=== PATIENT | female | born 1950 ===

== ENCOUNTER 2016-09-23 10:03 | Emergency (ER) | payer MEDICARE ==
[2016-09-23 10:06] VITALS: PULSE 109; TEMP 97; O2SAT 99
[2016-09-23 10:08] VITALS: BMI 33.5
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
[2016-09-23 12:32] VITALS: BP 132/78; RESP 18
--- NOTE | 2016-09-23 12:33 | RAD ---
PROCEDURE: Cervical Spine Radiographs. HISTORY: Posttraumatic pain. COMPARISON: None. FINDINGS: BONES: Alignment maintained. No fracture. Dens Intact. DISC SPACES: Disc degenerative changes C5-6, C6-7. SOFT TISSUES: Normal. No prevertebral soft tissue swelling. OTHER FINDINGS: None. IMPRESSION: No acute findings related to/accounting for the clinical presentation. Concordant results with the preliminary interpretation rendered by the emergency department physician procedure.
--- NOTE | 2016-09-23 14:24 | RAD ---
PROCEDURE: Radiographs of the left elbow. HISTORY: trauma COMPARISON: No prior. FINDINGS: BONES: Normal. No fracture. JOINTS: Osteoarthritic changes and marginal osteophyte formation are seen. SOFT TISSUES: Normal. JOINT EFFUSION: None. OTHER FINDINGS: None IMPRESSION: No radiographic evidence of acute fracture or dislocation. Osteoarthritic degenerative changes.
--- NOTE | 2016-09-23 14:27 | RAD ---
PROCEDURE: Left Knee Radiographs. HISTORY: Pain. COMPARISON: None. FINDINGS: BONES: Diffuse osteopenia is noted. No evidence of acute fracture or dislocation. JOINTS: Normal. No osteoarthritis. JOINT EFFUSION: None. OTHER FINDINGS: None. IMPRESSION: No evidence of acute fracture or dislocation.
== END 2016-09-23 12:32 | disposition home or self-care (01) ==
LOC: H.ER 10:03
DX: S13.4XXA Sprain of ligaments of cervical spine, initial encounter (principal); S83.92XA Sprain of unspecified site of left knee, initial encounter; S53.402A Unspecified sprain of left elbow, initial encounter; Y04.0XXA Assault by unarmed brawl or fight, initial encounter; Y92.89 Other specified places as the place of occurrence of the external cause; E11.9 Type 2 diabetes mellitus without complications; I10 Essential (primary) hypertension

== ENCOUNTER 2017-07-15 10:22 | Observation (INO) | payer MEDICARE, MEDICAID ==
[2017-07-15] MEDS ORDERED: Bupivacaine 0.5% Inj(30mL) ONE (10:35)
[2017-07-15] MEDS ORDERED: Lidocaine 1% Inj (20ml) ONE (10:36)
[2017-07-15 10:37] VITALS: BMI 34.2
--- NOTE | 2017-07-15 10:56 | CP.SDSHP ---
Same Day Surgery H & P - Allergies Allergies: Allergies shrimp Allergy (Verified 07/14/17 13:54) SWELLING Short Stay Discharge - Short Stay Discharge Admitting Diagnosis/Reason for Visit: S82.62XA,S93.432A,G89.11,R60.0 Disposition: HOME/ ROUTINE Referrals: Roselia Carrillo MD [Primary Care Provider] -
--- NOTE | 2017-07-15 10:56 | CP.PCM.PN ---
Subjective - Date & Time of Evaluation Date of Evaluation: 07/15/17 Time of Evaluation: 10:56 - Subjective Subjective: Podiatry Consult Note - Dr. Martinez 67 year old female PMHx DM, HTN, fibromyalgia, 2 herniated discs seen for pre- operative evaluation for left fibular fracture ORIF with Dr. Martinez. Family member present at bedside. Posterior splint present on LLE and CAM walker on RLE. Patient states she sustained a fall descending down steps, injuring both ankles - admits she fractured her left ankle and sprained right ankle. Patient reports severe pain to her left ankle, moderate pain to right ankle. Patient states due to her bilateral injuries, she is unable to ambulate and feels unstable when she stands just on her right foot. Patient admits to taking pain medications but have provided no relief to her left ankle. Patient denies N/V/F/ D/C/SOB/calf pain. Objective - Constitutional Appears: Well, Non-toxic, No Acute Distress - Extremities Exam Additional comments: LLE focused physical exam Posterior splint appears clean/dry/intact. CFT <3 seconds to all digits x5. Gross sensation intact to digits. - Neurological Exam Neurological Exam: Alert, Awake, Oriented x3 - Psychiatric Exam Psychiatric exam: Normal Affect, Normal Mood Assessment and Plan - Assessment and Plan (Free Text) Assessment: 67 year old female PMHx DM, HTN, fibromyalgia, herniated discs with 1) left fibular fracture and 2) right ankle sprain secondary to mechanical fall Plan: Patient seen and evaluated Discussed with attending, Dr. Martinez Afebrile, WBC 5.4 Left ankle pain remains despite conservative management - pt opting for surgical intervention. Explained to patient and family all risks, benefits, and complications of procedure and wishes to proceed To OR tomorrow 07/16/17 for left fibular fracture ORIF Patient was explained procedure and post-operative course NPO at midnight Requesting medical and cardiac clearance Patient to be admitted for evaluation, increased pain LLE and gait instability Podiatry will continue to follow while in house
[2017-07-15] MEDS ORDERED: Lidocaine 4% (Laryng-O-Jet) Kit MM ONE (10:58)
[2017-07-15] MEDS ORDERED: Etomidate 20 mg/10ml Inj IV ONE (10:58)
[2017-07-15] MEDS ORDERED: Succinylcholine 200 mg/10 ml Inj IV ONE (10:58)
[2017-07-15] MEDS ORDERED: Propofol 10 mg/ml Inj (20 ML) ONE (10:58)
[2017-07-15] MEDS ORDERED: Phenylephrine 10 mg/ml Inj ONE (10:58)
[2017-07-15] MEDS ORDERED: Rocuronium 10 mg/ml (5 ml) ONE (10:58)
[2017-07-15] MEDS ORDERED: Bupivacaine HCl/Epi 0.5% 1:20000 30 ML SOL IJ ONE (11:04)
[2017-07-15 11:16] LABS: HEMOGLOBIN 11.6 g/dL (12.0-16.0); MEAN CELL VOLUME 80.8 fl (81.0-99.0); MEAN CORPUSCULAR HEMOGLOBIN 26.4 pg (27.0-31.0); MEAN CORPUSCULAR HGB CONC 32.7 g/dL (33.0-37.0); RBC 4.38 Mil/uL (3.80-5.20); RED CELL DISTRIBUTION WIDTH 16.6 % (11.5-14.5); WHITE BLOOD COUNT 5.4 K/uL (4.8-10.8)
[2017-07-15 11:26] LABS: ALT/SGPT 36 U/L (9-52); AST/SGOT 23 U/L (14-36); BLOOD UREA NITROGEN 14 mg/dl (7-17); CALCIUM 9.6 mg/dL (8.4-10.2); GFR AFRICAN-AMERICAN > 60; GFR NON-AFRICAN AMERICAN > 60
[2017-07-15 11:29] LABS: PARTIAL THROMBOPLASTIN TIME 31.6 Seconds (25.6-37.1); PROTHROMBIN TIME 11.4 Seconds (9.8-13.1)
--- NOTE | 2017-07-15 11:32 | RAD ---
HISTORY: pre op COMPARISON: No prior. FINDINGS: LUNGS: No active pulmonary disease. PLEURA: No significant pleural effusion identified, no pneumothorax apparent. CARDIOVASCULAR: Atherosclerotic aortic calcifications. Cardiomediastinal silhouette appears prominent ; however, this cannot be accurately assessed on an AP projection. OSSEOUS STRUCTURES: Degenerative changes. VISUALIZED UPPER ABDOMEN: Normal. OTHER FINDINGS: None. IMPRESSION: No active disease.
--- NOTE | 2017-07-15 12:12 | CP.PCM.HP ---
History of Present Illness - History of Present Illness History of Present Illness: 67 yo female with history of DM2, HTN, palpitation and Fibromyalgia was sent here for ORIF of displaced left distal fibular fracture caused by falling on the stairs a week ago. Present on Admission - Present on Admission Any Indicators Present on Admission: No History of DVT/PE: No History of Uncontrolled Diabetes: No Urinary Catheter: No Decubitus Ulcer Present: No Review of Systems - Review of Systems All systems: reviewed and no additional remarkable complaints except (aside from those mentioned above, 14 point system review were negative by me) Past Patient History - Tetanus Immunizations Tetanus Immunization: Unknown - Past Medical History & Family History Past Medical History?: Yes - Past Social History Smoking Status: Never Smoked Alcohol: None Drugs: Denies Home Situation {Lives}: With Family - CARDIAC Hx Cardiac Disorders: Yes Hx Hypertension: Yes Other/Comment: palpitation - PULMONARY Hx Respiratory Disorders: No - NEUROLOGICAL Hx Neurological Disorder: No - HEENT Hx HEENT Problems: No - RENAL Hx Chronic Kidney Disease: No - ENDOCRINE/METABOLIC Hx Diabetes Mellitus Type 2: Yes - HEMATOLOGICAL/ONCOLOGICAL Hx Blood Disorders: No - INTEGUMENTARY Hx Dermatological Problems: No - MUSCULOSKELETAL/RHEUMATOLOGICAL Other/Comment: Fibromyalgia - GASTROINTESTINAL Hx Gastrointestinal Disorders: No - GENITOURINARY/GYNECOLOGICAL Hx Genitourinary Disorders: No - PSYCHIATRIC Hx Psychophysiologic Disorder: No - SURGICAL HISTORY Hx Surgeries: Yes Hx Cholecystectomy: Yes Hx Tubal Ligation: Yes - ANESTHESIA Hx Anesthesia: Yes Hx Anesthesia Reactions: No Hx Malignant Hyperthermia: No Has any member of the family had a problem w/ anesthesia?: No Meds Allergies/Adverse Reactions: Allergies Allergy/AdvReac Type Severity Reaction Status Date / Time shrimp Allergy SWELLING Verified 07/14/17 13:54 Physical Exam - Constitutional Appears: No Acute Distress - Head Exam Head Exam: ATRAUMATIC - Eye Exam Eye Exam: absent: Scleral icterus - ENT Exam ENT Exam: Mucous Membranes Moist - Neck Exam Neck exam: Negative for: Meningismus - Respiratory Exam Respiratory Exam: absent: Rhonchi, Wheezes, Respiratory Distress - Cardiovascular Exam Cardiovascular Exam: REGULAR RHYTHM, +S1, +S2 - GI/Abdominal Exam GI & Abdominal Exam: Soft. absent: Tenderness - Rectal Exam Rectal Exam: Deferred - Extremities Exam Extremities exam: Negative for: normal inspection (left leg in cast) - Back Exam Back exam: absent: tenderness - Neurological Exam Neurological exam: Alert, Oriented x3 - Psychiatric Exam Psychiatric exam: Normal Affect - Skin Skin Exam: Dry, Intact Results - Labs Result Diagrams: 07/15/17 11:00 07/15/17 11:00 Labs: Laboratory Results - last 24 hr 07/15/17 07/15/17 07/15/17 11:00 11:00 11:00 WBC 5.4 RBC 4.38 Hgb 11.6 L Hct 35.4 MCV 80.8 L MCH 26.4 L MCHC 32.7 L RDW 16.6 H Plt Count 291 PT 11.4 INR 1.0 APTT 31.6 Sodium 139 Potassium 3.3 L Chloride 96 L Carbon Dioxide 30 Anion Gap 16 BUN 14 Creatinine 0.5 L Est GFR ( Amer) > 60 Est GFR (Non-Af Amer) > 60 POC Glucose (mg/dL) Random Glucose 145 H Calcium 9.6 Total Bilirubin 0.4 AST 23 ALT 36 Alkaline Phosphatase 91 Total Protein 7.9 Albumin 4.0 Globulin 3.9 Albumin/Globulin Ratio 1.0 07/15/17 11:45 WBC RBC Hgb Hct MCV MCH MCHC RDW Plt Count PT INR APTT Sodium Potassium Chloride Carbon Dioxide Anion Gap BUN Creatinine Est GFR ( Amer) Est GFR (Non-Af Amer) POC Glucose (mg/dL) 141 H Random Glucose Calcium Total Bilirubin AST ALT Alkaline Phosphatase Total Protein Albumin Globulin Albumin/Globulin Ratio Assessment & Plan - Assessment and Plan (Free Text) Assessment: 67 yo female with history of DM2, HTN, palpitation and Fibromyalgia was sent here for ORIF of displaced left distal fibular fracture caused by falling on the stairs a week ago. 1. Displaced Fracture of Left Distal Fibula for ORIF by Dr Hinojosa pending cardiac clearance by Dr Campo ECHO pain controlled 2. DM2 BS controlled continue Metformin 1000mg PO OD 3. HTN BP stable Losartan 25mg PO daily Metoprolol 200mg PO BID
[2017-07-15] MEDS ORDERED: Perflutren Lipid Microsphere 1.5 ML SUS IV ONE (12:37)
--- NOTE | 2017-07-15 17:50 | CARD ---
APPROVED REPORT EXAM: Two-dimensional and M-mode echocardiogram with Doppler, color Doppler with contrast. Other Information Quality : GoodRhythm : NSR INDICATION Pre-Op Echo Enhancing Agent Indication: Endocardial border delineation Agent/Amount Used: Definity 2D DIMENSIONS IVSd1.08 (0.7-1.1cm)LVDd3.42 (3.9-5.9cm) LVOT Diameter2.22 (1.8-2.4cm)PWd1.09 (0.7-1.1cm) IVSs1.74 (0.8-1.2cm)LVDs1.58 (2.5-4.0cm) FS (%) 53.8 %PWs1.58 (0.8-1.2cm) M-Mode DIMENSIONS Left Atrium (MM)3.44 (2.5-4.0cm)IVSd1.18 (0.7-1.1cm) Aortic Root2.82 (2.2-3.7cm)LVDd4.21 (4.0-5.6cm) Aortic Cusp Exc.1.97 (1.5-2.0cm)PWd1.00 (0.7-1.1cm) IVSs1.50 cmFS (%) 54 % LVDs1.94 (2.0-3.8cm)PWs1.38 cm Mitral Valve MV E Ovylswag92.5cm/sMV DECEL COED196eeWG A Jbtesgld51.2cm/s MV UWX37ilN/A ratio0.5MVA (PHT)5.09cm2 TDI Lateral E' Peak V6.44cm/sMedial E' Peak V3.59cm/sE/Lateral E'6.8 E/Medial E'12.1 Pulmonary Valve PV Peak Eamuwwao51.5cm/s LEFT VENTRICLE The left ventricle is normal size. There is normal left ventricular wall thickness. The left ventricular function is normal. The left ventricular ejection fraction is 60% There is normal LV segmental wall motion. The left ventricular diastolic function is normal. No left ventricle thrombus noted on this study. There is no ventricular septal defect visualized. There is no left ventricular aneurysm. There is no mass noted in the left ventricle. RIGHT VENTRICLE The right ventricle is normal size. There is normal right ventricular wall thickness. The right ventricular systolic function is normal. ATRIA The left atrium size is normal. The right atrium size is normal. The interatrial septum is intact with no evidence for an atrial septal defect. AORTIC VALVE The aortic valve is normal in structure. No aortic regurgitation is present. There is no aortic valvular stenosis. There is no aortic valvular vegetation. MITRAL VALVE The mitral valve is normal in structure. There is no evidence of mitral valve prolapse. There is no mitral valve stenosis. There is no mitral valve regurgitation noted. TRICUSPID VALVE The tricuspid valve is normal in structure. There is no tricuspid valve regurgitation noted. There is no tricuspid valve prolapse or vegetation. There is no tricuspid valve stenosis. PULMONIC VALVE The pulmonary valve is normal in structure. There is no pulmonic valvular regurgitation. There is no pulmonic valvular stenosis. GREAT VESSELS The aortic root is normal in size. The ascending aorta is normal in size. The IVC is normal in size and collapses >50% with inspiration. PERICARDIAL EFFUSION The pericardium appears normal. There is no pleural effusion. <Conclusion> Normal Echocardiogram
--- NOTE | 2017-07-15 17:58 | CARD ---
APPROVED REPORT EKG Measurement Heart [id number] <Conclusion> Normal sinus rhythm Normal ECG
[2017-07-16 07:24] LABS: INR 1.1 (0.9-1.2)
[2017-07-16 07:26] LABS: BASO % 0.6 % (0.0-2.0); BLOOD UREA NITROGEN 14 mg/dl (7-17); CALCIUM 9.4 mg/dL (8.4-10.2); EOS # 0.1 K/uL (0.0-0.7); EOS % 1.1 % (0.0-4.0); GFR AFRICAN-AMERICAN > 60; GFR NON-AFRICAN AMERICAN > 60; HEMOGLOBIN 11.2 g/dL (12.0-16.0); LYMPH # 1.8 K/uL (1.0-4.3); LYMPH % 34.2 % (20.0-40.0); MEAN CELL VOLUME 80.3 fl (81.0-99.0); MEAN CORPUSCULAR HEMOGLOBIN 27.1 pg (27.0-31.0); MEAN CORPUSCULAR HGB CONC 33.7 g/dL (33.0-37.0); MEAN PLATELET VOLUME 7.9 fl (7.2-11.7); MONO # 0.4 K/uL (0.0-0.8); MONO % 7.5 % (0.0-10.0); NEUT # 2.9 K/uL (1.8-7.0); NEUT % 56.6 % (50.0-75.0); NRBC % 0.1 % (0.0-0.0); RBC 4.13 Mil/uL (3.80-5.20); RED CELL DISTRIBUTION WIDTH 16.4 % (11.5-14.5); WHITE BLOOD COUNT 5.1 K/uL (4.8-10.8)
[2017-07-16] MEDS ORDERED: Etomidate 20 mg/10ml Inj IV ONE (07:32)
[2017-07-16] MEDS ORDERED: Succinylcholine 200 mg/10 ml Inj IV ONE (07:32)
[2017-07-16] MEDS ORDERED: Rocuronium 10 mg/ml (5 ml) ONE ×2 (07:32→10:06)
[2017-07-16] MEDS ORDERED: Propofol 10 mg/ml Inj (20 ML) ONE (07:32)
[2017-07-16] MEDS ORDERED: Bupivacaine HCl/Epi 0.5% 1:20000 30 ML SOL IJ ONE (07:41)
--- NOTE | 2017-07-16 07:43 | CP.PCM.PN ---
Subjective - Date & Time of Evaluation Date of Evaluation: 07/16/17 Time of Evaluation: 07:41 - Subjective Subjective: Podiatry Progress Note - Dr. Martinez 67 year old female PMHx DM, HTN, fibromyalgia, 2 herniated discs seen for pre- operative evaluation for left fibular fracture ORIF. No acute events overnight. Patient reports minimal pain to LLE today, well-controlled. Admits to moderate pain to RLE. NPO confirmed. Patient states she is able to WBAT RLE in a CAM walker, and is comfortably able to transfer using RLE. Patient denies N/V/F/D/C/ SOB/calf pain. Objective - Vital Signs/Intake and Output Vital Signs (last 24 hours): Temp Pulse Resp BP Pulse Ox 97.7 F 82 19 125/75 95 07/16/17 07:29 07/16/17 07:29 07/16/17 07:29 07/16/17 07:29 07/16/17 07:29 - Medications Medications: Current Medications Calcium Carbonate (Oscal) 500 mg PO DAILY [facility] Cholecalciferol (Vitamin D) 1,000 intlu PO DAILY [facility] Gabapentin (Neurontin) 800 mg PO DAILY [facility] Losartan Potassium (Cozaar) 25 mg PO DAILY [facility] Metformin HCl (Glucophage) 1,000 mg PO DAILY [facility] Metoprolol Tartrate (Lopressor) 200 mg PO Q12 [facility] Last Admin: 07/16/17 07:27 Dose: 200 mg Pantoprazole Sodium (Protonix Ec Tab) 40 mg PO DAILY [facility] - Labs Labs: 07/16/17 05:30 07/16/17 05:30 PT 12.0 Seconds (9.8-13.1) 07/16/17 05:30 INR 1.1 (0.9-1.2) 07/16/17 05:30 APTT 31.6 Seconds (25.6-37.1) 07/15/17 11:00 - Constitutional Appears: Well, Non-toxic, No Acute Distress - Extremities Exam Additional comments: LLE focused physical exam Posterior splint appears clean/dry/intact. CFT <3 seconds to all digits x5. Gross sensation intact to digits. - Neurological Exam Neurological Exam: Alert, Awake, Oriented x3 - Psychiatric Exam Psychiatric exam: Normal Affect, Normal Mood Assessment and Plan - Assessment and Plan (Free Text) Assessment: 67 year old female PMHx DM, HTN, fibromyalgia, herniated discs with 1) left fibular fracture and 2) right ankle sprain secondary to mechanical fall Plan: Patient seen and evaluated Discussed with attending, Dr. Martinez Vital signs stable, WBC 5.1 Pt NPO status was confirmed All Pre-op testing and clearance was in the chart Pt has exhausted all conservative treatment at this time and is opting for surgical intervention Pt was explained procedure and post-operative course All pt's questions were answered to satisfaction No guarantees were made Pt understands all risks, benefits and complications of procedure Pt will follow-up with Dr. Martinez in office Podiatry will continue to follow while in house
[2017-07-16] MEDS ORDERED: Bupivacaine 0.5% Inj(30mL) IJ ONE (07:46)
[2017-07-16] MEDS ORDERED: Lidocaine 1% Inj (20ml) IJ ONE (07:46)
[2017-07-16] MEDS ORDERED: Lactated Ringer's 1,000 ML IV ONE (08:08)
[2017-07-16] MEDS ORDERED: Neostigmine 1:1000 (1 mg/ml) Inj ONE (08:44)
[2017-07-16] MEDS ORDERED: Dexamethasone 4 mg/1 ml ONE ×2 (08:46→09:54)
[2017-07-16] MEDS ORDERED: Cholecalciferol 1,000 INTLU TAB PO SCH (09:00)
[2017-07-16] MEDS ORDERED: Pantoprazole 40 mg EC Tab PO SCH ×2 (09:00)
[2017-07-16] MEDS ORDERED: ceFAZolin IV 2 gm in Dextrose 2 GM/50 ML BAG IVPB ONE (09:00)
--- NOTE | 2017-07-16 09:43 | PCM.ANESB2 ---
Popliteal Nerve Block - Popliteal Nerve Block Date of Procedure: 07/16/17 Anesthesiologist: Rima Pre-Procedure Diagnosis: Left fibula fracture Post-Procedure Diagnosis: Same Procedure Performed: Popliteal Nerve Block Left - Procedure Popliteal Nerve Block: This procedure was explained to the patient that it is for post-operative pain management. Consent was obtained after a thorough discussion with the patient regarding the benefits and possible complications of local anesthetic block of the sciatic nerve at the popliteal level. The patient was brought to the operating room and standard monitors are applied. Time-out was held with the circulating nurse to confirm the correct surgery and the appropriate block. Under general aneshesia, patient's operative leg was gently raised and supported and the groove in between the biceps femoris and vastus lateralis muscles was carefully palpated. The skin approximately 8cm above the popliteal crease was then marked. The ultrasound transducer was then applied to the posterior thigh approximately 8cm above the popliteal crease in the transverse plane and the sciatic nerve before its division was visualized lateral to the popliteal artery and in between the bicep femoris and semimembranosus/ semitendinosus muscles. After identification, the lateral portion of the thigh was prepped with Chloraprep. At this point, a # 21 gauge Stimuplex insulated 4 inch needle was inserted into pre-marked area and advanced in a perpendicular direction. The needle was inserted above the ultrasound transducer in-plane towards the sciatic nerve in a [id number] direction. Needle advancement was performed carefully under direct ultrasound visualization. Nerve stimulator was used and dorsiflexion of the __left___ foot was elicited at a current of _0.4____ MA. After repeated negative aspiration, __2___cc of __0.375___ % __bupivicaine with 1:200,000 epinephrine was injected and this was flowed with __28____ cc of __ _0.5___% ___bupivicaine with 1:200,000 epinephrine . Under ultrasound guidance the local anesthetics were observed surrounding sciatic nerve . The needle was removed intact. The patient tolerated the popliteal nerve block well with stable vital signs and was subsequently prepared for the surgery.
[2017-07-16] MEDS ORDERED: Bupivacaine 0.5% Inj(30mL) ONE (09:55)
[2017-07-16] MEDS ORDERED: Dexamethasone 4 mg/1 ml IM ONE (09:57)
[2017-07-16] MEDS ORDERED: Bupivacaine 0.5% 50 ML IJ ONE (09:58)
--- NOTE | 2017-07-16 10:40 | PCM.SURG1 ---
Surgeon's Initial Post Op Note - Surgeon's Notes Surgeon: Dr. Martinez Medicine Assistant: Rosaura Kruse PGY3, Haroon Heard PGY3, Tamia Yang PGY1 Type of Anesthesia: General Endo, Local (Popliteal block) Anesthesia Administered By: Dr. bAarca Pre-Operative Diagnosis: 1) Displaced left fibular fracture. 2) Left syndesmotic injury Operative Findings: See operative report. Materials: Synthes VA lateral distal fibular plate, 4 hole L; 3.5mm cortical screws (16mm, 14mm), 2.7 VA locking screw (14mm, 10mm, 12mm), 2.7mm lovking screw (14mm), 2.0mm cortical screw (22mm ), 7.0mm washer, 3-0 vicryl, 4-0 vicryl, 4-0 monocryl. Injectables: 10cc 0.5% marcaine plain, 8cc dexamethasone Post-Operative Diagnosis: Same as above Operation Performed: 1) ORIF left fibular fracture. 2) repair of ankle syndesmosis with Arthrex tightrope Specimen/Specimens Removed: - Estimated Blood Loss: EBL {In ML}: 1 Blood Products Given: N/A Drains Used: No Drains Post-Op Condition: Good Date of Surgery/Procedure: 07/16/17 Time of Surgery/Procedure: 10:41
[2017-07-16] MEDS ORDERED: Oxycodone/Acetaminophen 5/325 mg Tab PO PRN ×2 (10:48)
[2017-07-16] MEDS ORDERED: Lactated Ringer's 1,000 ML IV SCH (11:00)
--- NOTE | 2017-07-16 11:57 | CP.PCM.DIS ---
Provider - Provider Date of Admission: 07/15/17 11:37 Attending physician: Johnathan Retana MD Primary care physician: Roselia Carrillo MD Consults: Dr Jahaira Martinez Time Spent in preparation of Discharge (in minutes): 25 Diagnosis - Discharge Diagnosis (1) Displaced fracture of distal end of left fibula Status: Acute Comment: s/p ORIF. follow up with Dr Martinez in a week (2) DM2 (diabetes mellitus, type 2) Status: Chronic Comment: BS controlled. continue Metformin 1000mg PO daily (3) HTN (hypertension) Status: Chronic Comment: BP stable. continue Losartan and Metoprolol Hospital Course - Lab Results Lab Results: Most Recent Lab Values WBC 5.1 K/uL (4.8-10.8) 07/16/17 05:30 RBC 4.13 Mil/uL (3.80-5.20) 07/16/17 05:30 Hgb 11.2 g/dL (12.0-16.0) L 07/16/17 05:30 Hct 33.1 % (34.0-47.0) L 07/16/17 05:30 MCV 80.3 fl (81.0-99.0) L 07/16/17 05:30 MCH 27.1 pg (27.0-31.0) 07/16/17 05:30 MCHC 33.7 g/dL (33.0-37.0) 07/16/17 05:30 RDW 16.4 % (11.5-14.5) H 07/16/17 05:30 Plt Count 301 K/uL (130-400) 07/16/17 05:30 MPV 7.9 fl (7.2-11.7) 07/16/17 05:30 Neut % (Auto) 56.6 % (50.0-75.0) 07/16/17 05:30 Lymph % (Auto) 34.2 % (20.0-40.0) 07/16/17 05:30 [place] % (Auto) 7.5 % (0.0-10.0) 07/16/17 05:30 Eos % (Auto) 1.1 % (0.0-4.0) 07/16/17 05:30 Baso % (Auto) 0.6 % (0.0-2.0) 07/16/17 05:30 Neut # (Auto) 2.9 K/uL (1.8-7.0) 07/16/17 05:30 Lymph # (Auto) 1.8 K/uL (1.0-4.3) 07/16/17 05:30 [place] # (Auto) 0.4 K/uL (0.0-0.8) 07/16/17 05:30 Eos # (Auto) 0.1 K/uL (0.0-0.7) 07/16/17 05:30 Baso # (Auto) 0.0 K/uL (0.0-0.2) 07/16/17 05:30 PT 12.0 Seconds (9.8-13.1) 07/16/17 05:30 INR 1.1 (0.9-1.2) 07/16/17 05:30 APTT 31.6 Seconds (25.6-37.1) 07/15/17 11:00 Sodium 140 mmol/l (132-148) 07/16/17 05:30 Potassium 3.7 MMOL/L (3.6-5.0) 07/16/17 05:30 Chloride 97 mmol/L (98-107) L 07/16/17 05:30 Carbon Dioxide 31 mmol/L (22-30) H 07/16/17 05:30 Anion Gap 16 (10-20) 07/16/17 05:30 BUN 14 mg/dl (7-17) 07/16/17 05:30 Creatinine 0.6 mg/dl (0.7-1.2) L 07/16/17 05:30 Est GFR ( Amer) > 60 07/16/17 05:30 Est GFR (Non-Af Amer) > 60 07/16/17 05:30 POC Glucose (mg/dL) 248 mg/dL (65-110) H 07/16/17 11:37 Random Glucose 210 mg/dL (65-105) H 07/16/17 05:30 Calcium 9.4 mg/dL (8.4-10.2) 07/16/17 05:30 Total Bilirubin 0.4 mg/dl (0.2-1.3) 07/15/17 11:00 AST 23 U/L (14-36) 07/15/17 11:00 ALT 36 U/L (9-52) 07/15/17 11:00 Alkaline Phosphatase 91 U/L (38-126) 07/15/17 11:00 Total Protein 7.9 G/DL (6.3-8.2) 07/15/17 11:00 Albumin 4.0 g/dL (3.5-5.0) 07/15/17 11:00 Globulin 3.9 gm/dL (2.2-3.9) 07/15/17 11:00 Albumin/Globulin Ratio 1.0 (1.0-2.1) 07/15/17 11:00 - Hospital Course Hospital Course: 67 yo female with history of DM2, HTN, palpitation and Fibromyalgia had ORIF of displaced left distal fibular fracture after cleared by Dr Campo, mold stamper on consult. Patient tolerated procedure well. She was discharged in stable condition and will follow with Dr Martinez in a week. Discharge Exam - Head Exam Head Exam: ATRAUMATIC - Eye Exam Eye Exam: absent: Scleral icterus - ENT Exam ENT Exam: Mucous Membranes Moist - Respiratory Exam Respiratory Exam: absent: Rhonchi, Wheezes, Respiratory Distress - Cardiovascular Exam Cardiovascular Exam: REGULAR RHYTHM, +S1, +S2 - GI/Abdominal Exam GI & Abdominal Exam: Soft. absent: Tenderness - Rectal Exam Rectal Exam: Deferred - Neurological Exam Neurological exam: Alert, Oriented x3 - Psychiatric Exam Psychiatric exam: Normal Affect - Skin Skin Exam: Dry, Intact Discharge Plan - Follow Up Plan Condition: GOOD Disposition: HOME/ ROUTINE Referrals: Roselia Carrillo MD [Primary Care Provider] -
[2017-07-16 12:31] VITALS: BP 117/79; PULSE 85; RESP 20; TEMP 98; O2SAT 95
--- NOTE | 2017-07-16 13:46 | PN ---
DATE: CARDIOLOGY FOLLOWUP SUBJECTIVE: The patient denies chest pain or shortness of breath. She underwent open reduction internal fixation of left tibial fracture no reported arrhythmia. PHYSICAL EXAMINATION: VITAL SIGNS: Blood pressure 117/79, heart rate 85, temperature 98, and respirations 20. HEENT: Normocephalic. CHEST: Clear. HEART: S1 and S2 regular. EXTREMITIES: No edema. An EKG was done today, which revealed normal sinus rhythm. LABORATORY DATA: Today's hemoglobin and hematocrit are 11.1 and 33.1. White count and platelet count are within normal limits. Today's SMA-7; sodium 140, potassium 3.9, chloride 97, CO2 31, glucose 210, BUN 14, and creatinine 0.6. ASSESSMENT: 1. Status post open reduction internal fixation of left tibial fracture. 2. Hypertension, diabetes mellitus. 3. Improved hypokalemia. 4. History of palpitation. RECOMMENDATIONS: The patient can be discharged on Cozaar 25 mg once a day, Lopressor 25 mg twice a day and to follow up her primary advanced practice professional . Ivan Campo MD
--- NOTE | 2017-07-18 08:24 | CON ---
DATE: CARDIOLOGY CONSULTATION REASON FOR CONSULTATION: Preoperative evaluation. HISTORY OF PRESENT ILLNESS: The patient is a 67-year-old female who has a history of hypertension, diabetes mellitus, who sustained a fall with left tibial fracture as well as right ankle sprain 9 days ago at [facility], for some insurance issues, the family changed orthopedic and after having splint at [facility], the patient was admitted for surgical repair of the left tibial fracture. The patient is being followed by Heat Treater by name of Dr. Cohen at [facility]. A month ago, she was treated with metoprolol for palpitation. The patient denies any history of cardiac catheterization. Denies any history of coronary artery disease in the past. The history was obtained from the station installation supervisor who happened to be the patient's daughter. The patient denies any chest pain or shortness of breath at supine. The reason for the patient days ago that she missed a step, there was no dizziness or syncope. SOCIAL HISTORY: Nonsmoker. Nondrinker. MEDICATIONS: Cozaar 25 mg once a day, Glucophage 1 gram daily, Lopressor 25 mg once a day, Neurontin 800 mg once a day, and Protonix 40 mg once a day. REVIEW OF SYSTEMS: GENERAL: No nausea or vomiting. No fever or chills. No productive cough. PHYSICAL EXAMINATION: GENERAL: The patient is an elderly female who does not appear to be in any distress. VITAL SIGNS: Blood pressure of , heart rate of 91, temperature of 98.3 and respirations of 18. HEENT: Normocephalic. NECK: No JVD. CHEST: Clear. HEART: S1 and S2 regular. ABDOMEN: Soft. EXTREMITIES: No edema. LABORATORY DATA: SMA-7: Sodium of 139, potassium of 3.3, chloride of 96, CO2 of 30, glucose of 145, BUN of 14, and creatinine of 0.5. Hemoglobin and hematocrit are 11.6 and 35.4. White count and platelet count are within normal limits. PT, PTT and INR are within normal limits. DIAGNOSTIC DATA: EKG revealed normal sinus rhythm. I did review the echocardiograph study, which revealed concentric LVH with normal systolic function. ASSESSMENT: 1. Hypertension and diabetes mellitus. 2. History of palpitation. 3. Status post recent fall with left tibial fracture. The x-rays for that fractures are not available or [employer] database as they were done in [facility]. RECOMMENDATIONS: Correct hypokalemia with 20 mEq of IV potassium. After the completion,the patient can undergo orthopedic surgery with close preoperative blood pressure and risk monitoring with postoperative telemetry monitoring. Ivan Campo MD
--- NOTE | 2017-07-18 12:17 | CARD ---
APPROVED REPORT EKG Measurement Heart [id number] <Conclusion> Normal sinus rhythm Normal ECG
--- NOTE | 2017-07-18 16:09 | OP ---
PROCEDURE DATE: 07/16/2017 PREOPERATIVE DIAGNOSIS: Left ankle fibular fracture and syndesmotic injury. POSTOPERATIVE DIAGNOSES: 1. Left ankle fibular fracture, syndesmotic injury and tibial fracture. 2. Left ankle osteochondral lesion of the lateral talar dome. PROCEDURES PERFORMED: 1. Left ankle debridement and neck fracture of lateral talar osteochondral lesion. 2. Left ankle open reduction and internal fixation of fibular fracture, tibial fracture and syndesmotic injury. SURGEON: Taiwo Martinez DPM BLOCK SEALER: Dr. Rc Kruse, PGY-3, Dr. Alberto Heard, PGY-3 and Chinyere Yang DPM, PGY1. TYPE OF ANESTHESIA: General. ANESTHESIA ADMINISTERED BY: Malcolm Abarca MD INDICATION: This patient is a 67-year-old female who suffered a traumatic injury to the left ankle. A close fracture was confirmed with diagnostic imaging and the patient presented today seeking surgical intervention. All alternatives, benefits, complications, and risks of surgical procedure were explained to the patient at length. The patient verbalized understanding and wished to proceed. All questions were addressed and answered. No guarantees were given or implied. The consent was signed and the n.p.o. status was confirmed prior to bringing the patient to the operating room. OPERATIVE PROCEDURE: The patient was brought into the operating room and placed on the operating room table in a supine position. A pneumatic thigh tourniquet was placed around the patient's left thigh. After induction of general anesthesia, the patient's left lower extremity was prepped and draped in the usual sterile manner. PROCEDURE #1: Left ankle debridement and microfracture of lateral talar osteochondral lesion. Attention was directed to the patient's lateral left ankle where a linear incision was made overlying the distal aspect of the fibula. The incision was then deepened through the superficial and subcutaneous tissues utilizing sharp and blunt dissection. Care was taken to retract all vital neurovascular structures throughout the duration of the procedure. Attention was then directed distally and dissection was carried down through a level of the periosteum and ankle joint capsule. A 15 blade and Surprise elevator were then utilized to free the capsule and periosteal tissues from the distal aspect of the fibula and the lateral aspect of the ankle joint. Upon dissection of the distal lateral aspect of the ankle joint and tibial fibular articulation, there is noted that there was a fracture fragment overall off of the distal lateral tibia. A fracture fragment was then created from its soft tissue attachments, removed from the surgical field and placed in saline on the back table to be used at later step of the procedure. Upon removal of fracture fragment, the ankle joint and lateral shoulder of the talus could be clearly visualized. At this time, it was noted that there was an osteochondral lesion of the lateral talar shoulder measuring approximately 1 cm x 0.4 cm. It was often noted that there were multiple cartilaginous loose bodies within the ankle joint. A pickup was utilized to remove the loose bodies from the ankle joint and they were passed from the surgical field to the back table. A pickup of #15 blade was then utilized to debride any loose edges from the talar dome surrounding the osteochondral lesion. Once the osteochondral lesion was adequately debrided, a 1.6 mm K-wire was utilized with a wire motor bus driver to drill the osteochondral lesion and penetrate the subchondral bone of the talus in a microfracture technique. Approximately 6 drill holes were utilized to perform the microfracture technique. The surgical area was then flushed with copious amounts of sterile normal saline. PROCEDURE #2: Left ankle open reduction and internal fixation of fibular fracture, tibial fracture and syndesmotic injury. Utilizing the same incision, attention was then directed back to the fracture of the anterolateral tibia. The fracture fragment that had been previously passed from the surgical field was then placed into the appropriate anatomic position. A temporary K-wire was then utilized to stabilize the fracture fragment onto the anterolateral portion of the tibia. Next, a fracture fragment was then secured and placed utilizing a 2.0 mm fully-threaded Synthes cortical screw. The fragment was utilizing standard AO technique and the screw was inserted utilizing standard AO technique and tightened to 2-finger tightness. The temporary K-wire was then removed and it was noted at this time that the fracture had been anatomically reduced with very minimal step-off to the anterolateral ankle joint. Attention was then directed to the fibula, where a #15-blade was utilized to make further make a linear incision through the periosteum overlying the distal fibula. A #15 blade and Surprise elevator and Bustillo elevators were then utilized to free the periosteal tissues from the distal fibula. At this time, the fracture site through the fibula could be utilized. A #15 blade and Surprise elevator were again utilized to free any soft tissue or bony impingements within the fracture site. The fracture site was then flushed with copious amount of sterile normal saline. Next, utilizing a sharp-sharp and lobster-claw bone clamp, the fracture was manually reduced into anatomical alignment. Intraoperative fluoroscopy was utilized to confirm anatomic reduction. Next, a Synthes 3.5 mm fully threaded cortical screw was inserted across the fracture site perpendicular to serve as an interfragmentary screw. The screw was inserted utilizing standard AO technique and tightened to 2-finger tightness. Next, a Synthes 4-0 VA lateral distal tibial plate was applied to lateral aspect of the fibula. It is noted on initial inspection that the plate did not fit anatomically to lateral aspect of the fibula. Plate binders were then utilized to slightly bend the plate in order to fit the lateral aspect of the fibula. The plate was then again reapplied to lateral aspect of the fibula and temporarily held in position utilizing bone reduction forceps. The plate was then secured to the lateral aspect of the fibula, by first inserting a Synthes 2.5 mm fully threaded locking screw distal to the fracture site and second by inserting a Synthes 3.5 mm fully-threaded cortical screw proximal to the fracture site. Intraoperative fluoroscopy was then again utilized to confirm appropriate positioning of the plate and anatomic reduction of the fibula and fracture site. Finally, the plate was further fixated to the fibula, utilizing five 2.7 mm locking fully threaded Synthes screws distal to the fracture site and two 2.7 mm fully-threaded locking screws proximal to the fracture site. The bone reduction forceps were then removed from the plate in the fracture site and is noted that the fracture site was adequately fixated with the plate and interfragmentary screw. At this time, intraoperative fluoroscopy was again utilized and there was noted that there was disruption that was confirmed within the ankle joint, syndesmosis. Utilizing an Arthrex stainless steel syndesmotic TightRope, the guidewire was inserted through a plate hole, also utilizing a Synthes 7.0 mm washer in ordered to prevent from the TightRope falling through the plate hole. The guidewire for the Tightrope was inserted and the cannulated drill was drilled over the guidewire utilizing standard technique. The TightRope was then inserted through the previously drilled hole utilizing standard technique, it was inserted utilizing the Synthes washer as previously mentioned. Next, intraoperative fluoroscopy was utilized to confirm appropriate positioning of the TightRope and the TightRope was tied down and secured utilizing standard technique. At this time, it was noted that syndesmosis has been adequately reduced and fixated utilizing the TightRope. The remaining of the TightRope were then cut with #15 blade and surgical area was flushed with copious amounts of sterile normal saline. The periosteal tissues were then reapproximated utilizing 2-0 Vicryl suture. The subcutaneous tissues were then reapproximated utilizing 4-0 Vicryl suture. The skin was then reapproximated utilizing 4-0 Monocryl suture in a running subcuticular fashion. Intraoperative injections consisted of 10 mL of 5% Marcaine plain and 1 mL of dexamethasone 4 mg. Postoperative dressing consisted of saline-soaked gauze, DSD, Naa, stockinette, cast padding and a bivalve fiberglass cast with Braxton bandages. POSTOPERATIVE CONDITION: The patient tolerated the procedure and anesthesia well with no apparent complications or complaints. The patient was escorted from the OR to the recovery room with vital signs stable and neurovascular status intact. The patient will follow up with Dr. Martinez as an outpatient in the [facility]. Rc Kruse DPM
== END 2017-07-16 14:44 | disposition home or self-care (01) ==
LOC: H.OPSURG 10:22 → INTOOBSV 11:37 → H.MEDSURG1 11:37
DX: S82.832A Other fracture of upper and lower end of left fibula, initial encounter for closed fracture (principal); Z79.84 Long term (current) use of oral hypoglycemic drugs; Z90.49 Acquired absence of other specified parts of digestive tract; S93.401A Sprain of unspecified ligament of right ankle, initial encounter; W10.9XXA Fall (on) (from) unspecified stairs and steps, initial encounter; Y92.9 Unspecified place or not applicable; E11.9 Type 2 diabetes mellitus without complications; E87.6 Hypokalemia; I10 Essential (primary) hypertension; M79.7 Fibromyalgia; S93.432A Sprain of tibiofibular ligament of left ankle, initial encounter
CPT/HCPCS: 27620; 27792; 36415; 64445; 71045; 80048; 80053; 82948; 85025; 85027; 85610; 85730; 93005; 93306; C1713; C1769; G0378; J0330; J0690; J1100; J2001; J2370; J2405; J2704; J2710; J2765; J3010; J3480; J7030; J7120

== ENCOUNTER 2017-11-25 06:06 | Day surgery (SDC) | payer MEDICARE, MEDICAID ==
--- NOTE | 2017-11-25 06:39 | CP.PCM.PN ---
Subjective - Date & Time of Evaluation Date of Evaluation: 11/25/17 Time of Evaluation: 06:36 - Subjective Subjective: Podiatry progress note for attending Dr. Martinez 67 y/o female with PMHx of DM, HLD, HTN, and fibromyalgia was seen and evaluated at bedside in [facility] for surgery to right lateral ankle. Patient states she last ate and drank at 8:00 PM. Patient reports taking her HTN medications this morning. Patient states she fell down the stairs in June of 2017. Patient reports having surgery to the left foot, and is now receiving surgery to her right ankle. Patient complains of pain with ambulation. Patient was resting comfortably, denies any other pedal complaints and denies F/V/N/SOB. PSHx: left foot surgery ALL: shrimp Objective - Vital Signs/Intake and Output Vital Signs (last 24 hours): Temp Pulse Resp BP Pulse Ox 97.9 F 100 H 20 130/76 94 L 11/25/17 06:28 11/25/17 06:30 11/25/17 06:28 11/25/17 06:28 11/25/17 06:28 - Constitutional Appears: Well, Non-toxic, No Acute Distress - Head Exam Head Exam: ATRAUMATIC, NORMOCEPHALIC - Extremities Exam Additional comments: Bilateral Lower Extremity Exam VASC: DP and PT 2/4 bilaterally, CFT less than 3 seconds X 10; TG warm to cool proximal to distal, minimal edema noted to the left ankle NEURO: diminished protective sensation bilaterally DERM: no open lesions, no IDM, no wounds, no clinical signs of infection, no erythema, no ecchymosis MSK: pain on palpation to the lateral ankle at the ATFL, CFL and PTFL, pain with inversion of the ankle, pain to the dorsolateral ankle, pain at the deltoid ligament medially, pain with Anterior drawer test - Neurological Exam Neurological Exam: Alert, Awake, Oriented x3 - Psychiatric Exam Psychiatric exam: Normal Affect, Normal Mood Assessment and Plan - Assessment and Plan (Free Text) Assessment: 67 y/o female with PMHx of DM, HLD, HTN, and fibromyalgia was seen and evaluated at bedside in [facility] for surgery to right lateral ankle Plan: Pt was seen and examined in [facility] Pt NPO status was confirmed All pre-op testing and clearance in chart Pt has exhausted all conservative treatment at this time and is opting for surgical intervention Pt was explained procedure and post-operative course All pt's questions were answered to satisfaction No guarantees were made Pt understands all risks, benefits and complications of procedure Pt will follow-up with Dr. Martinez within 1 week of surgery
--- NOTE | 2017-11-25 06:44 | CP.SDSHP ---
Same Day Surgery H & P - History Proposed Procedure: Right Ankle Arthroscopy w/ Extensive debridement, Modified Brostrom Ankle stabilization with plasma rich platelets injection/grating, repair of deltoid ligament Pre-Op Diagnosis: Right Lateral Ankle Synovitis and fibrosis, right ATFL partial tear, right deltoid ligament partial rupture - Previous Medical/Surgical History Pain: 4.Moderate Pain - Allergies Allergies: Allergies shrimp Allergy (Verified 07/14/17 13:54) SWELLING - Physical Exam Vital Signs: Vital Signs 11/25/17 11/25/17 06:28 06:30 Temperature 97.9 F Pulse Rate 100 H 100 H Respiratory 20 Rate Blood Pressure 130/76 O2 Sat by Pulse 94 L Oximetry - {Optional Preform as Required} Integument: WNL - Impression Pt. Evaluated Today:Candidate for Anesthesia & Procedure: Yes - Date & Time Date: 11/25/17 Time: 06:44 Short Stay Discharge - Short Stay Discharge Admitting Diagnosis/Reason for Visit: S92.144A M65.871 S92.491 G89.21 Disposition: HOME/ ROUTINE Referrals: Roselia Carrillo MD [Primary Care Provider] - Additional Instructions (Diet, Activity): -Patient in good/stable condition for discharge home -Pt to resume medications per medical reconciliation -Resume regular diet Please keep dressing clean, dry, & intact to surgical site -Use plastic bag over bandage for showering -Wear post op shoe at all times when ambulating -Call clinic if you see signs of infection (redness, swelling, malodor) -Please make an appointment to see in office/clinic within 1 week for post-op check Progress Note/Discharge Note with Instructions: - Patient evaluated bedside in recovery s/p surgical procedure. - After surgical procedure patient in NAD - (+) Void, (+) Appetite - Capillary refill time <3s and NVSI intact. - Patient denies complaints at this time - Post operative instructions and plan of care explained to patient at length. - Pt. acknowledges understanding. - Patient stable for DC per podiatric surgery
[2017-11-25] MEDS ORDERED: Sodium Chloride 0.9% 1,000 ML IV SCH (06:45)
[2017-11-25] MEDS ORDERED: ceFAZolin 1 GM in Sodium Chloride 0.9% 100 ML IVPB ONE (06:45)
[2017-11-25] MEDS ORDERED: Lidocaine 1% Inj (20ml) IJ ONE (06:45)
[2017-11-25] MEDS ORDERED: Bupivacaine 0.5% Inj(30mL) IJ ONE ×2 (06:45→10:40)
[2017-11-25] MEDS ORDERED: Lactated Ringer's 1,000 ML IV ONE (06:54)
[2017-11-25] MEDS ORDERED: Midazolam 2 MG/2 ML VIAL ONE (07:34)
[2017-11-25] MEDS ORDERED: Propofol 10 mg/ml Inj (20 ML) ONE (07:34)
[2017-11-25] MEDS ORDERED: ePHEDrine 50 mg/ml Inj ONE (07:35)
[2017-11-25] MEDS ORDERED: Rocuronium 10 mg/ml (5 ml) ONE (07:35)
[2017-11-25] MEDS ORDERED: Succinylcholine 200 mg/10 ml Inj IV ONE (07:35)
[2017-11-25] MEDS ORDERED: Bupivacaine HCl 0.5% PF (10 ml) Inj ONE (07:40)
[2017-11-25] MEDS ORDERED: Bupivacaine HCl 0.25% PF (30 ml) Inj ONE (07:41)
[2017-11-25] MEDS ORDERED: EPINEPHrine 1 mg/ml (1:1000) Inj ONE ×2 (07:59→08:02)
[2017-11-25] MEDS ORDERED: Lidocaine 2% Inj (20ml) IJ ONE ×2 (08:45)
[2017-11-25] MEDS ORDERED: Phenylephrine 10 mg/ml Inj ONE (08:52)
[2017-11-25] MEDS ORDERED: Neostigmine 1:1000 (1 mg/ml) Inj ONE (10:28)
[2017-11-25] MEDS ORDERED: Oxycodone/Acetaminophen 5/325 mg Tab PO PRN ×2 (10:59)
--- NOTE | 2017-11-25 11:04 | PCM.SURG1 ---
Surgeon's Initial Post Op Note - Surgeon's Notes Surgeon: Dr. Taiwo Martinez, DPM Medical Billing Coordinator: Dr. Tamia Fuchs, PGY3, Dr. Tamia Yang, PGY2, Dr. Tamia Warren, PGY2 Type of Anesthesia: General Endo Anesthesia Administered By: Dr. Ascencio Pre-Operative Diagnosis: 1) Right Ankle Synovitis and Fibrosis. 2) Right ATFL Partial tear. 3) Right Talar Dome Osteochondral Defect. 4) Right Partial Deltoid Ligament Tear Operative Findings: see dictation. I: intra-op- 16 cc 2% Lidocaine plain, Platelet Rich Plasma Injection and Graft, 20 cc 0.25% Marcaine plain. M: Arthrex Internal Brace, 4.75 mm Swivel locks X 2, 2.0 mm Fibertape, 2.4 SutureTak, 3.0 SutureTak, 2-0 Fiberwire, 4-0 Nylon, 4-0 Vicryl, 4-0 monocryl Post-Operative Diagnosis: same as pre-operative Operation Performed: 1) Right Ankle Arthroscopy with Synovectomy and Debridement. 2) Right Lateral Ankle Stabilization with Internal Brace. 3) Right Deltoid Ligament Repair. 4) PRP Injection and Grafting Specimen/Specimens Removed: none Estimated Blood Loss: EBL {In ML}: 15 Blood Products Given: N/A Drains Used: No Drains Post-Op Condition: Good Date of Surgery/Procedure: 11/25/17 Time of Surgery/Procedure: 11:08
--- NOTE | 2017-11-25 11:12 | PCM.ANESB2 ---
Popliteal Nerve Block - Popliteal Nerve Block Date of Procedure: 11/25/17 Procedure Performed: Popliteal Nerve Block Right - Procedure Popliteal Nerve Block: This procedure was explained to the patient that it is for post-operative pain management. Consent was obtained after a thorough discussion with the patient regarding the benefits and possible complications of local anesthetic block of the sciatic nerve at the popliteal level. The patient was brought to the operating room and standard monitors are applied. Time-out was held with the circulating nurse to confirm the correct surgery and the appropriate block. After applying oxygen by nasal cannula and administering IV Sedation, patient's operative leg was gently raised and supported and the groove in between the biceps femoris and vastus lateralis muscles was carefully palpated. The skin approximately 8cm above the popliteal crease was then marked. The ultrasound transducer was then applied to the posterior thigh approximately 8cm above the popliteal crease in the transverse plane and the sciatic nerve before its division was visualized lateral to the popliteal artery and in between the bicep femoris and semimembranosus/semitendinosus muscles. After identification, the lateral portion of the thigh was prepped with chloroprep. At this point, a # 21 gauge Stimuplex insulated 4 inch needle was inserted into pre-marked area and advanced in a perpendicular direction. The needle was inserted above the ultrasound transducer in-plane towards the sciatic nerve in a [id number] direction. Needle advancement was performed carefully under direct ultrasound visualization. Nerve stimulator was used and dorsiflexion of the __right___ foot was elicited at a current of __0.4___ MA. After repeated negative aspiration, __5___cc of ____0.25_ % __ropivacaine was injected and this was flowed with __15___ cc of ___0.25___% ___ropivacaine____. Under ultrasound guidance the local anesthetics were observed surrounding sciatic nerve . The needle was removed intact. The patient tolerated the popliteal nerve block well with stable vital signs.
[2017-11-25 13:01] VITALS: RESP 18; O2SAT 98
[2017-11-25 14:52] VITALS: BP 132/67; PULSE 78; TEMP 98
--- NOTE | 2017-11-30 08:40 | OP ---
PROCEDURE DATE: 11/25/2017 PRIMARY SURGEON: Taiwo Martinez DPM ASSISTANTS: Day Fuchs DPM, PGY-3; Chinyere Yang DPM, PGY-2; and Zohaib Warren DPM, PGY-2 ANESTHESIA TYPE: General LMA. ANESTHESIOLOGIST: Chari Ascencio MD PREOPERATIVE DIAGNOSES: 1. Right ankle synovitis and fibrosis. 2. Right talar dome osteochondral lesion. 3. Right anterior talofibular ligament partial tear. 4. Right deltoid ligament partial tear. POSTOPERATIVE DIAGNOSES: 1. Right ankle synovitis and fibrosis. 2. Right anterior talofibular ligament partial tear. 3. Right deltoid ligament partial tear. PROCEDURES PERFORMED: 1. Right ankle arthroscopy with synovectomy and debridement. 2. Right lateral ankle stabilization with internal brace. 3. Right deltoid ligament repair. 4. Right foot injection of platelet-rich plasma and allograft membrane. SPECIMEN: None. INDICATIONS: The patient is a 67-year-old female with the above-stated diagnoses. The patient has exhausted all conservative treatment options and is now in need of surgical intervention. The patient signed the surgical consent after careful explanation of risks, benefits, complications, and potential alternatives of the above surgical procedures. No guarantees were either given or employed. All the patient's questions were answered to her satisfaction. PREPARATION: The patient's n.p.o. status was confirmed prior to bringing the patient to the operating room. The patient was brought into the operating room and placed on the operating room table in a supine position. Once the patient was properly placed, general anesthesia was commenced and confirmed to have been achieved. With the patient undergoing general anesthesia, the patient received a right pneumatic tourniquet at the level of the mid thigh, which was set at 350 mmHg to be inflated once the procedure began. At that time, the patient received an ipsilateral hip bump, which was placed inferior to the operating room table mattress to adequately position the patient's lower extremity on the operating room table. Once positioning obtained, the patient's right foot, ankle, and lower leg were then prepped and draped in the usual sterile manner. Foot and ankle was exsanguinated. The tourniquet was inflated, and the procedures began. PROCEDURE 1: Right ankle arthroscopy with synovectomy and fibrous banding resection. Attention was then directed to the anterior aspect of the patient's right ankle where the ankle joint was palpated and marked with anatomical borders on the lateral malleolus. At this time, the ankle joint was then infiltrated with 16 mL of 2% lidocaine plain through the lateral gutter of the ankle joint. Next, utilizing a #11 blade, the medial portal was created directly medial to the tendon of tibialis anterior along the anterior ankle joint margin. This incision was then deepened to subcutaneous tissue layer with blunt dissection. Next, utilizing an obturator, the ankle joint was entered and the arthroscope was then inserted through this portal entry. It was noted upon visualization that there was an abundance of hypertrophic synovium with significant fibrous banding, which obscured approximately 90% of the arthroscopic field. The lateral portal was then created using transillumination technique using an #11 blade and blunt dissection was utilized to carry down the incision to the ankle joint capsule. Trocars were then placed into this point and used to triangulate the lateral portal and through the trocar, and at this time, the trocar was then switched out with a 3.5 mm aggressive shaver. It was inserted through the lateral portal and debridement of noted hypertrophic synovium and fibrous banding began. Through significant debridement and arthroscopic flush, joint visualization was greatly improved. Upon re-examination of joint at this level with major hypertrophic synovium, fibrous banding was resected. A 21 point anterior capsular exam was performed. It was noted that at this time in the lateral gutter, there was significant hypertrophic fibrous tissue overlying the medial fibular osteochondral surface with low lying fascial banding of the inferior and anterior tibiotalar ligament. Utilizing a hand resector, overlying excess fascial band of inferior and anterior tibiotalar bands were resected, and using 3.5 arthroscopic shaver, three excess hypertrophic banding was resected with approximately 78% of hypertrophic fascial banding resected at this point allowing partial view of fibular osteochondral articular surface. It was noted that upon subsequent lateral ankle stabilization procedure, partial open access would be required to slowly debride this joint surface. Concern with the 21-point exam, it was noted that there was partial osteochondral defect in the anterior medial one-third of the talar dome. Upon palpation, it was noted that there was no osteochondral weakness or shifting of osteochondral surface along this area. Upon 21-point exam, there was no noted additional osteochondral defects as ankle was put through passive and good range motion. It was noted that at this time active range of motion had been greatly improved with hypertrophic synovium resection and fibrosis resection, and it was assessed at this time that debridement was complete. The ankle scope and shaver were then resected, and the medial portal was then closed with 4-0 nylon. PROCEDURE 2: Right lateral ankle stabilization with internal brace. Attention was then directed to the lateral aspect of the patient's right ankle joint overlying the anterior talofibular ligament. The distal fibula and the talus were then marked out using a marker pen to serve as an anatomical landmark. A curvilinear incision was created using a #15 blade overlying the anterior talofibular ligament at the level of the lateral gutter of the ankle joint, incorporating the previous lateral portal incision. This incision was then extended up to the subcutaneous tissue layers with care being taken to identify and avoid and retract all vital neurovascular structures. All bleeders were cauterized and ligated as needed. Using #15 blade, the capsular structures were then excised in a vertical fashion overlying the lateral ankle joint compartment. It was noted at this time that there was significant scar tissue, no discernable anterior talofibular organized fibers. It was noted at this time that the lateral anterior talofibular ligament had been previously ruptured with hypertrophic scar tissue banding in place to approximate stabilization of the ligament at this level. This hypertrophic tissue was seemed to allow adequate reapproximation for subsequent capsular ligamentous closure. It was noted that with the lateral capsule incised and reflected, the lateral coaptation of the talus, fibula, and distal tibia were evaluated and previously noted on the arthroscopic exam. There was noted hypertrophic fibrous scar tissue remaining on the fibular osteochondral surface. With careful sharp dissection, excess hypertrophic material was then excised and passed from the operative field. Ankle joint was placed through gentle active range of motion and was noted that there was no remaining fribrous limitation at this time. The surgical site was then flushed with copious amount of sterile saline. Next, using a 2.7 mm drill bit from the [employer] internal brace kit, a guide drill hole was then created in the non-articular surface of the talus directly at approximately 45 degrees to prevent violation of the ankle joint in the lateral talar body. Next, using the same 2.5 mm drill bit from internal brace kit, a drill hole was created in the distal anterior colliculus/anterior ramus of the fibula at the intermediate point. Next, utilizing the 3.5 mm tap, the talar drill hole was tapped at full length of the tap while the fibular drill hole was only tapped to half way, then full length was tapped. Next, utilizing a 1.8 Ar[employer]rex Mini SutureTak drill bit, a towboat pilot hole was created inferior to the previous 2.5 mm drill hole at the apex of the fibula. This drill bit was then changed to full 2.4 SutureTak. SutureTak integrity was found to be adequate. At this time, a 3.5 mm internal brace fiber tapes were then placed into the talar bodyand then screwed into place and properly secured. FiberTape sutures were then passed through the distal anterior talofibular cuff to lie extracapsularly upon completion of repair. Next, utilizing the Ar[employer]rex Mini SutureTak, a passive wedge type reapproximation of the anterior talofibular ligament was completed to reapproximate the incised edge of the ATFL and extensor retinaculum, which was encapsulated into repair. This was done while the foot was placed in a dorsiflexion eversion position to maximize tension and resist re-inversion injury. Reapproximation of ATFL was found to be stable at this time. Next, the remaining internal brace FiberTape was then set through a 3.5 mm Arthrex SwiveLock and the ankle was then inserted into the fibular tunnel previously created. Initial attempt to secure the SwiveLock failed and SwiveLock was unusable, at the time a larger SwiveLock was inserted and the towboat pilot hole for the SwiveLock was fully tapped at full length and placed with 4.0 mm SwiveLock. Position security was found to be adequate as this was held in dorsiflexion position with hemostat utilized under FiberTape to avoid over tensioning. SwiveLock was found to be secured and well adhered and fully incorporated into repair. Excess FiberTape was then cut and removed from the operative field. Surgical site was then flushed with sterile saline. The ankle joint was then put through active inversion and eversion, and repair was found to be stable. Subcutaneous tissue was then re-approximated using 4-0 Vicryl. Skin was re-approximated using 4-0 Monocryl. PROCEDURE 3: Repair of deltoid ligament using Ar[employer]rex SutureTak. Attention was then directed over the medial aspect of the patient's deltoid ligament course. A curvilinear incision was made measuring approximately 1 cm just inferior to the level of the medial malleolus and extended distally. Care was taken to place our incision anterior and superior to the neurovascular bundle of the posterior tibial tendon. The incision was then carried down to the deep tissues using combination of sharp and blunt tissue dissection. Care is being taken to avoid all vital neurovascular structures and tendon structures. Next, the dissection was continued down until the superficial, fibrous deltoid ligament were revealed, and visualized in the operative view. Next, superficial fibers of the deltoid were then inspected, and superficial fibers appeared to be intact with no tearing noted. Next, utilizing a #15 blade, a linear incision was made to the superficial deltoid fibers approximately 3 cm in order to inspect deep fibers of deltoid. Upon inspection of the fibers of the deltoid, there appeared to be short linear longitudinal tears. Surgical site was then flushed with copious amount of sterile saline. Next, dissection was carried down to the level of the distal aspect of the tibia and medial malleolus. Next, utilizing a 2.4 drill to create a towboat pilot drill hole in the medial aspect of the medial malleolus and a 3.0 mm Ar[employer]rex SutureTak was then placed in the drill hole and securely entered with mallet. Next, the free end of the FiberTape was then utilized to repair the deep and superficial deltoid ligament fibers using an [id number] suture-type technique. Excess FiberTape was then cut from the repair site. Surgical site was then flushed with copious amount of sterile saline. The elbow was then placed in the inversion and eversion with excellent stability to achieve in the medial ankle joint. Surgical site was then again flushed with copious amount of sterile saline. Deep subcutaneous tissue was then re-approximated using 3-0 Vicryl, subcutaneous tissue was re-approximated using 4-0 Vicryl, skin was re-approximated using 4-0 Monocryl. The patient received a local ankle joint saphenous block utilizing 20 mL of 0.25% Marcaine plain in a local block side fashion. Surgical sites were then dressed with saline-soaked 4 x 4 gauze and Naa with Braxton bandage. The patient was to be partial weightbearing to tolerance. POSTOPERATIVE CONDITION: The patient tolerated the anesthesia and procedure well and was escorted to the recovery room with vital signs stable and neurovascular status intact to right foot. The patient had no complaints of complications. The patient will follow up with Dr. Martinez in his office on an outpatient basis. Day Fuchs DPM Taiwo Martinez DPM DANIELA
== END 2017-11-25 15:15 | disposition home or self-care (01) ==
LOC: H.OPSURG 06:06
PROVIDERS: ATTEND Podiatrist
DX: M65.871 Other synovitis and tenosynovitis, right ankle and foot (principal); S93.491A Sprain of other ligament of right ankle, initial encounter; X58.XXXA Exposure to other specified factors, initial encounter; W10.9XXA Fall (on) (from) unspecified stairs and steps, initial encounter; E11.9 Type 2 diabetes mellitus without complications; E78.5 Hyperlipidemia, unspecified; I10 Essential (primary) hypertension
CPT/HCPCS: 0232T; 29892; 29895; 82948; 97161; C1713; G8978; G8979; G8980; J0171; J0330; J0690; J2001; J2250; J2370; J2405; J2704; J2710; J3010; J7030; J7120